=== PATIENT | male | born 1970 | race Two or more races ===

== ENCOUNTER 2019-04-19 21:03 | Emergency (ER) | payer SELFPAY ==
[~2019-04-19] VITALS: Ht 170.2 cm; Wt 86.2 kg
[2019-04-19 22:00] LABS: Basophils # (auto) 0 uL; Basophils % (auto) 0.3 % (0.0-2.0); Eosinophils # (auto) 0 uL; Eosinophils % (auto) 0.2 % (0.0-7.0); Hemoglobin 16.3 g/dL (13.5-17.5); Lymphocytes # (auto) 0.9 uL; Lymphocytes % (auto) 8.6 % (10.0-50.0); Mean Corpuscular Hemoglobin 29.4 pg (28.0-32.0); Mean Corpuscular Hgb Conc. 33.8 g/dL (32.0-36.0); Mean Corpuscular Volume 86.8 fL (80.0-100.0); Monocytes # (auto) 0.3 uL; Monocytes % (auto) 3.3 % (0.0-12.0); Neutrophils # (auto) 8.9 uL; Neutrophils % (auto) 87.6 % (37.0-80.0); Nucleated Red Blood Cells % 0.1 %; Platelet Count (auto) 291 10^3/uL (140-450); Red Blood Cells 5.53 10^6/uL (4.5-5.90); Red Cell Distribution Width 13.1 % (11.8-14.3); White Blood Cell 10.2 10^3/uL (4.4-10.8)
[2019-04-19 22:57] LABS: BUN/Creatinine Ratio 15.7
[2019-04-19 22:58] LABS: Albumin 4.2 g/dL (3.4-5.0); Bilirubin, Total 0.4 mg/dL (0.2-1.0); Calcium 9.2 mg/dL (8.5-10.1); Total Protein 7.8 g/dL (6.4-8.2)
[2019-04-20 01:05] VITALS: BP 121/69
[2019-04-20] MEDS ORDERED: SODIUM CHLORIDE 0.9% 1,000 ML IV ONE (02:00)
[2019-04-20] MEDS ORDERED: ONDANSETRON HCL 4 MG/2 ML VIAL IV ONE (02:00)
[2019-04-20] MEDS ORDERED: IOHEXOL 300 MG/ML 100ML BOTTLE IJ ONE (02:01)
== END 2019-04-20 04:03 | disposition home or self-care (01) ==
LOC: ER 21:08
DX: K52.9 Noninfective gastroenteritis and colitis, unspecified (principal); H65.93 Unspecified nonsuppurative otitis media, bilateral
CPT/HCPCS: 36415; 74177; 80053; 82962; 85025; 96361; 96374; 99285; J2405; Q9967